=== PATIENT | male | born 1980 | race Two or more races ===

== ENCOUNTER → 2022-09-30 | Outpatient (REF) | payer OTHER | LOC: M SMT 12:56 | PROVIDERS: ATTEND Urology | DX: Z30.2 Encounter for sterilization (principal) | CPT/HCPCS: 55250; 88302; J0665 ==

== ENCOUNTER → 2022-10-01 | Outpatient (REF) | payer OTHER | LOC: M LABSMT 08:38 | PROVIDERS: ATTEND Urology | DX: Z53.9 Procedure and treatment not carried out, unspecified reason (principal) ==